=== PATIENT | female | born 1990 | race Two or more races ===

== ENCOUNTER 2023-02-04 18:31 | Emergency (ER) | payer SELFPAY ==
[~2023-02-04] VITALS: Ht 167.6 cm; Wt 76.6 kg
[2023-02-04 19:00] VITALS: BP 185/90; PULSE 100; RESP 16; O2SAT 98
[2023-02-04] MEDS ORDERED: IBUP1TAB5 PO (22:59)
[2023-02-04] MEDS ORDERED: CYCL-839 PO (22:59)
== END 2023-02-05 00:59 | disposition home or self-care (01) ==
LOC: ER 18:31
DX: S06.0XAA Concussion with loss of consciousness status unknown, initial encounter (principal); S13.8XXA Sprain of joints and ligaments of other parts of neck, initial encounter; S23.3XXA Sprain of ligaments of thoracic spine, initial encounter; S33.5XXA Sprain of ligaments of lumbar spine, initial encounter; S20.214A Contusion of middle front wall of thorax, initial encounter; S00.83XA Contusion of other part of head, initial encounter; S83.8X2A Sprain of other specified parts of left knee, initial encounter; S43.491A Other sprain of right shoulder joint, initial encounter; K76.0 Fatty (change of) liver, not elsewhere classified; I10 Essential (primary) hypertension; V89.2XXA Person injured in unspecified motor-vehicle accident, traffic, initial encounter; Y93.89 Activity, other specified; Y92.89 Other specified places as the place of occurrence of the external cause; Y99.8 Other external cause status
CPT/HCPCS: 70450; 71250; 72070; 72110; 72125; 74176